=== PATIENT | female | born 1990 | race Caucasian/White ===

== ENCOUNTER 2017-08-22 11:22 | Emergency (ER) | payer OTHER ==
[~2017-08-22] VITALS: Ht 170.2 cm; Wt 58.1 kg
[2017-08-22] MEDS ORDERED: Tetanus/Diptheria/Pertussis Vaccine 0.5ml Syr IM ONE (11:30)
[2017-08-22 12:07] LABS: APPEARANCE,URINE CLEAR; KETONES,URINE NEGATIVE (NEGATIVE); LEUKOCYTE ESTERASE ,URINE NEGATIVE (NEGATIVE); NITRITE,URINE NEGATIVE (NEGATIVE); PH,URINE 6 (4.5-8.0); PROTEIN,URINE NEGATIVE (NEGATIVE); UROBILINOGEN,URINE NORMAL MG/DL (0.0-1.0)
[2017-08-22 12:35] VITALS: BP 110/66
[2017-08-22] MEDS ORDERED: IBUPROFEN600 MG ORAL (12:36)
[2017-08-22 12:37] VITALS: BP 110/66
--- NOTE | 2017-08-25 10:09 | Diagnostic Imaging Report ---
Indication: Pain status post injury Technique: XRAY WRIST MIN 3V LEFT Comparison: None Findings: There is no acute fracture or dislocation. Joint spaces and anatomic alignment is preserved. There is mild soft tissue swelling about the wrist. No radiopaque foreign body is seen. Impression: No acute fracture or dislocation.
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
== END 2017-08-22 12:40 | disposition home or self-care (01) ==
LOC: EDBD 11:22 → EMR 11:40
DX: S60.812A Abrasion of left wrist, initial encounter (principal); S50.12XA Contusion of left forearm, initial encounter; V43.52XA Car driver injured in collision with other type car in traffic accident, initial encounter; Y92.410 Unspecified street and highway as the place of occurrence of the external cause; Z23 Encounter for immunization
CPT/HCPCS: 81003; 90471; 90715; 99283